=== PATIENT | female | born 1980 | race Caucasian/White ===

== ENCOUNTER 2017-03-01 10:30 | Outpatient (RCR) | payer OTHER | END 2017-03-06 | LOC: WSPT | DX: M62.81 Muscle weakness (generalized) (principal); M25.511 Pain in right shoulder; M25.551 Pain in right hip; M25.552 Pain in left hip ==

== ENCOUNTER 2017-04-01 14:00 | Outpatient (RCR) | payer OTHER | END 2017-04-24 10:11 | disposition still patient (30) | LOC: WSPT 14:00 | DX: M25.511 Pain in right shoulder (principal); R53.1 Weakness; M25.611 Stiffness of right shoulder, not elsewhere classified; M25.652 Stiffness of left hip, not elsewhere classified; M25.651 Stiffness of right hip, not elsewhere classified; Z74.09 Other reduced mobility ==